=== PATIENT | female | born 1975 ===

== ENCOUNTER 2023-01-24 06:57 | Day surgery (SDC) | payer OTHER ==
[~2023-01-24] VITALS: Ht 157.5 cm; Wt 59.0 kg
[~2023-01-24 06:57] MED LIST: ACETAMINOPHEN500 M1 PO; ADVIL100 M1 PO; ALLEGRA ALLERGY60 MG PO
[2023-01-24] MEDS ORDERED: PERCOCET 5-3251 EACH PO (08:31)
== END 2023-01-24 11:55 | disposition home or self-care (01) ==
LOC: CIR.AMB 06:57
PROVIDERS: ATTEND Surgery
DX: E05.10 Thyrotoxicosis with toxic single thyroid nodule without thyrotoxic crisis or storm (principal); D34 Benign neoplasm of thyroid gland; Z20.822 Contact with and (suspected) exposure to COVID-19; Z88.2 Allergy status to sulfonamides; Z88.1 Allergy status to other antibiotic agents